=== PATIENT | male | born 1980 | race Caucasian/White ===

== ENCOUNTER 2016-10-10 14:50 | Emergency (ER) | payer SELFPAY ==
[~2016-10-10 14:50] MED LIST: LEVAQUIN750 M1 PO
== END 2016-10-10 16:25 | disposition home or self-care (01) ==
LOC: CED 14:50 → CFTX 14:50
DX: N48.9 Disorder of penis, unspecified (principal); I10 Essential (primary) hypertension; F17.200 Nicotine dependence, unspecified, uncomplicated
CPT/HCPCS: 82947; 87070; 87205; 99283